=== PATIENT | female | born 1995 | race American Indian/Alaskan Native ===

== ENCOUNTER 2016-12-29 21:48 | Emergency (ER) | payer SELFPAY ==
[2016-12-29 22:03] VITALS: RESP 16
[2016-12-29 22:16] LABS: URINE BILIRUBIN NEGATIVE (NEGATIVE); URINE BLOOD NEGATIVE (NEGATIVE); URINE COLOR Yellow (YELLOW); URINE GLUCOSE (UA) NORMAL (Normal); URINE KETONE NEGATIVE (NEGATIVE); URINE PROTEIN NEGATIVE (NEGATIVE); URINE UROBILINOGEN NORMAL mg/dL (0.2-1.0)
[2016-12-29 22:19] LABS: RBC URINE 2 /hpf (0-3); URINE BACTERIA RARE (<OCC); WBC URINE < 1 /hpf (0-5)
[2016-12-29 22:21] LABS: URINE LEUKOCYTE ESTERASE NEGATIVE Leu/uL (Negative)
[2016-12-29] MEDS ORDERED: Sodium Chloride 0.9% 1,000 ML IV ONE (22:24)
--- NOTE | 2016-12-29 22:34 | C.PDOC ---
History Of Present Illness 21 y/o female presents in the ED c/o nausea and one episode of vomiting that started yesterday. The patient has cramping and discomfort in the suprapubic area that radiates through the perineum and to the rectum. She has no diarrhea or vaginal bleeding or discharge. The patient notes having spotty bleeding for two days LNMP 12/08/16. The patient denies fever, chills, and headaches. Time Seen by Provider: 12/29/16 22:16 Chief Complaint (Nursing): Abdominal Pain History Per: Patient History/Exam Limitations: no limitations Onset/Duration Of Symptoms: Days Current Symptoms Are (Timing): Still Present Location Of Pain/Discomfort: Suprapubic (cramping and discomfort which radiates into the perineum into the rectum) Associated Symptoms: Nausea, Vomiting. denies: Fever, Chills, Diarrhea Last Menstral Period: 12/08/16 Past Medical History Reviewed: Historical Data, Nursing Documentation, Vital Signs Vital Signs: Last Vital Signs Temp 98.4 F 12/29/16 22:01 Pulse 95 H 12/29/16 22:01 Resp 16 12/29/16 22:01 BP 119/75 12/29/16 22:01 Pulse Ox 97 12/29/16 22:55 Surgical History: No Surg Hx Family History: States: No Known Family Hx - Social History Hx Alcohol Use: No Hx Substance Use: No - Immunization History Hx Tetanus Toxoid Vaccination: No Hx Influenza Vaccination: No Hx Pneumococcal Vaccination: No Review Of Systems Except As Marked, All Systems Reviewed And Found Negative. Constitutional: Negative for: Fever, Chills Gastrointestinal: Positive for: Nausea, Vomiting. Negative for: Abdominal Pain , Diarrhea Physical Exam - Physical Exam Appears: Non-toxic, No Acute Distress Skin: Normal Color, Warm Head: Atraumatic, Normacephalic Oral Mucosa: Moist Chest: Symmetrical Cardiovascular: Rhythm Regular Respiratory: Normal Breath Sounds, No Rales, No Rhonchi Gastrointestinal/Abdominal: Soft, Tenderness (suprapubic ), No Guarding, No Rebound Extremity: Normal ROM, Capillary Refill (<2sec.) Neurological/Psych: Oriented x3, Normal Speech, Normal Cognition Gait: Steady ED Course And Treatment - Laboratory Results Result Diagrams: 12/29/16 22:40 12/29/16 22:40 Lab Interpretation: Normal Urine POC: Negative O2 Sat by Pulse Oximetry: 97 (RA) Pulse Ox Interpretation: Normal Progress Note: The patient received UA, IV fluids, and blood work. Reevaluation Time: 23:22 Reassessment Condition: Improved (after IV fluids) Disposition Counseled Patient/Family Regarding: Studies Performed, Diagnosis, Need For Followup - Disposition Referrals: [facility] [Outside] Disposition: HOME/ ROUTINE Disposition Time: 23:23 Condition: IMPROVED Instructions: Abdominal Pain (ED) Forms: [employer] (Turkish) - Clinical Impression Clinical Impression: Abdominal pain, Nausea, Vomiting - Scribe Statement The provider has reviewed the documentation as recorded by the Scribe (Jailene Finney) Provider Attestation: All medical record entries made by the Scribe were at my direction and personally dictated by me. I have reviewed the chart and agree that the record accurately reflects my personal performance of the history, physical exam, medical decision making, and the department course for this patient. I have also personally directed, reviewed, and agree with the discharge instructions and disposition.
[2016-12-29] MEDS ORDERED: Sodium Chloride 0.9% 1,000 ML ONE (22:43)
[2016-12-29 22:51] LABS: BASO % 0.8 % (0.0-2.0); EOS # 0.1 K/uL (0.0-0.7); EOS % 0.9 % (0.0-4.0); HEMATOCRIT 34.2 % (34.0-47.0); LYMPH # 2.5 K/uL (1.0-4.3); LYMPH % 43.1 % (20.0-40.0); MEAN CORPUSCULAR HEMOGLOBIN 26.6 pg (27.0-31.0); MEAN CORPUSCULAR HGB CONC 32.4 g/dL (33.0-37.0); MEAN PLATELET VOLUME 9.5 fL (7.2-11.7); MONO # 0.5 K/uL (0.0-0.8); MONO % 8.8 % (0.0-10.0); NRBC % 0.1 % (0.0-2.0); RED CELL DISTRIBUTION WIDTH 16.6 % (11.5-14.5); WHITE BLOOD COUNT 5.8 K/uL (4.8-10.8)
[2016-12-29 22:52] LABS: CHLORIDE 103 mmol/L (98-107)
[2016-12-29 22:53] LABS: POTASSIUM 4.2 mmol/L (3.6-5.2); SODIUM 141 mmol/L (132-148)
[2016-12-29 22:55] LABS: ALB/GLOB RATIO 1.2 (1.0-2.1); ALKALINE PHOSPHATASE 67 U/L (38-126); AST/SGOT 39 U/L (14-36); BILIRUBIN,TOTAL 0.8 mg/dL (0.2-1.3); BLOOD UREA NITROGEN 13 mg/dL (7-17); CARBON DIOXIDE 26 mmol/L (22-30); GFR AFRICAN-AMERICAN > 60; GLUCOSE,RANDOM 96 mg/dL (65-105); TOTAL PROTEIN 8.6 g/dL (6.3-8.3)
[2016-12-29 22:56] LABS: ALT/SGPT 34 U/L (9-52); CALCIUM 9.3 mg/dl (8.6-10.4)
[2016-12-29 23:51] VITALS: BP 96/62; PULSE 88; TEMP 98.2; O2SAT 100
== END 2016-12-29 23:50 | disposition home or self-care (01) ==
LOC: C.ER 21:48
DX: R10.30 Lower abdominal pain, unspecified (principal); R11.2 Nausea with vomiting, unspecified
CPT/HCPCS: 80053; 81001; 83690; 84703; 85025; 96360; 99283; J7040

== ENCOUNTER 2018-03-04 18:47 | Emergency (ER) | payer OTHER, MEDICAID ==
[2018-03-04 19:06] VITALS: PULSE 78; RESP 18; TEMP 98; O2SAT 98
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
[2018-03-04 20:46] VITALS: BP 119/76
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
--- NOTE | 2018-03-05 10:54 | RAD ---
Date of service: 03/04/2018 PROCEDURE: Cervical Spine Radiographs. HISTORY: Pain. COMPARISON: None available. FINDINGS: BONES: Alignment maintained. No fracture. Dens Intact. DISC SPACES: Normal. SOFT TISSUES: Normal. No prevertebral soft tissue swelling. OTHER FINDINGS: None. IMPRESSION: Normal cervical spine radiographs
== END 2018-03-04 20:49 | disposition home or self-care (01) ==
LOC: C.ER 18:47
DX: S16.1XXA Strain of muscle, fascia and tendon at neck level, initial encounter (principal); S39.012A Strain of muscle, fascia and tendon of lower back, initial encounter; V89.2XXA Person injured in unspecified motor-vehicle accident, traffic, initial encounter